=== PATIENT | male | born 1990 | race Two or more races ===

== ENCOUNTER 2022-06-21 23:09 | Emergency (ER) | payer OTHER ==
[~2022-06-21] VITALS: Ht 175.3 cm; Wt 93.0 kg
[2022-06-21 23:27] VITALS: BP 135/90
--- NOTE | 2022-06-21 23:30 | NUR ---
BIBGIRLFREIND C/O PALPITATIONS S/O USING COCAINE AROUND 8PM. PATIENT IS AAOX4. AMBULATORY. ANXIOUS. PLACED IN BED 2. VITALS CHECKED.
--- NOTE | 2022-06-21 23:33 | NUR ---
SEEN BY DR CLAROS AT BEDSIDE
--- NOTE | 2022-06-21 23:45 | NUR ---
Patient discharged to home in stable condition. Written and verbal after care instructions given. Patient verbalizes understanding of instruction.
== END 2022-06-21 23:49 | disposition home or self-care (01) ==
LOC: ER 23:21
DX: F14.10 Cocaine abuse, uncomplicated (principal); Z60.2 Problems related to living alone